=== PATIENT | female | born 1995 | race Caucasian/White ===

== ENCOUNTER → 2022-06-24 10:05 | Outpatient (CLI) | payer OTHER, SELFPAY ==
--- NOTE | 2022-06-24 10:18 | US_ITS ---
FINAL REPORT CLINICAL HISTORY: abnormal bleeding FINDINGS: Transvaginal sonographic images of the pelvis were obtained. The uterus measures 9.9 x 6.5 x 4.7 cm. The endometrium measures 12 mm, which is within normal limits. No uterine mass is identified. The right ovary measures 2.8 cm in length and left ovary measures 3.5 cm in length. Normal blood flow seen to the ovaries. There are multiple small follicles consistent with PCOS. There is a small amount of free fluid. IMPRESSION: Findings consistent with PCOS. Reviewed, Interpreted and Dictated by Homero Cantu III, MD Transcribed by Joshua Mir Authenticated and [facility]
[2022-06-24 10:54] LABS: Basophils # 0.1 K/mm3 (0-0.2); Basophils % 1.5 % (0.1-2.0); Eosinophils # 0.1 K/mm3 (0.0-0.4); Eosinophils % 1.4 % (0.1-12.0); Hematocrit 43.8 % (37.0-47.0); Hemoglobin 14.1 g/dL (12.2-16.2); Lymphocytes # 2.8 K/mm3 (0.7-4.5); Lymphocytes % 48.2 % (10-50); Mean Corpuscular HGB Conc 32.1 g/dL (31.8-35.4); Mean Corpuscular Hemoglobin 29.8 pg (27.0-31.2); Mean Corpuscular Volume 92.9 fl (81-99); Mean Platelet Volume 9.4 fl (7.4-10.4); Monocytes # 0.3 K/mm3 (0.1-1.0); Monocytes % 4.9 % (1.7-9.3); Neutrophils # 2.5 K/mm3 (1.8-7.8); Neutrophils % 44.1 % (37.0-80.0); Platelet Count 168 K/mm3 (142-424); Red Blood Count 4.71 M/mm3 (4.20-5.40); Red Cell Distribution Width 14.1 % (11.5-17.5); White Blood Count 5.7 K/mm3 (4.8-10.8)
[2022-06-24 12:05] LABS: Free Thyroxine Index 0.9 ug/dL (5.93-13.13); T4 (Thyroxine) 2.8 ug/dl (5.53-11.0); Triiodothryronine (T3) Uptake 31 % (23.5-40.5)
== END ==
PROVIDERS: PCP Obstetrics & Gynecology; Visit Provider Obstetrics & Gynecology
DX: N93.9 Abnormal uterine and vaginal bleeding, unspecified (principal)
CPT/HCPCS: 36415; 76830; 84436; 84443; 84479; 85025